=== PATIENT | female | born 1940 | race Caucasian/White ===

== ENCOUNTER 2016-06-21 09:12 | Outpatient (CLI) | payer MEDICARE, OTHER | END 2016-06-21 09:13 | disposition home or self-care (01) | DX: G47.33 Obstructive sleep apnea (adult) (pediatric) (principal) | CPT/HCPCS: 99214; G0463 ==

== ENCOUNTER 2016-08-03 11:17 | Outpatient (CLI) | payer MEDICARE, OTHER | END 2016-08-03 11:18 | disposition home or self-care (01) | DX: G47.33 Obstructive sleep apnea (adult) (pediatric) (principal) | CPT/HCPCS: 99214; G0463 ==

== ENCOUNTER 2016-10-31 10:48 | Outpatient (CLI) | payer MEDICARE, OTHER | END 2016-10-31 10:49 | disposition home or self-care (01) | DX: G47.33 Obstructive sleep apnea (adult) (pediatric) (principal) | CPT/HCPCS: 99214; G0463 ==

== ENCOUNTER 2017-06-05 11:15 | Outpatient (CLI) | payer MEDICARE, OTHER | END 2017-06-05 11:16 | disposition home or self-care (01) | LOC: SC 11:15 | PROVIDERS: ATTEND Nurse Practitioner Family | DX: G47.33 Obstructive sleep apnea (adult) (pediatric) (principal) | CPT/HCPCS: 99214; G0463; 99212 ==

== ENCOUNTER 2018-06-20 10:17 | Outpatient (CLI) | payer MEDICARE, OTHER | END 2018-06-20 10:18 | disposition home or self-care (01) | LOC: SC 10:17 | PROVIDERS: ATTEND Nurse Practitioner Family | DX: G47.33 Obstructive sleep apnea (adult) (pediatric) (principal) | CPT/HCPCS: 99214; G0463; 99212 ==

== ENCOUNTER 2020-06-10 18:32 | Outpatient (CLI) | payer MEDICARE, OTHER | END 2020-06-10 18:33 | disposition home or self-care (01) | LOC: COV 18:32 | PROVIDERS: ATTEND Ophthalmology | DX: Z01.812 Encounter for preprocedural laboratory examination (principal); Z20.828 Contact with and (suspected) exposure to other viral communicable diseases ==

== ENCOUNTER 2021-03-23 15:44 | Outpatient (CLI) | payer MEDICARE, OTHER ==
[2021-03-23 16:28] VITALS: BP 131/84
--- NOTE | 2021-03-23 16:28 | SLEEP CARE CONSULTATION ---
Information from patient questionnaire entered by Liam Arzate. I have reviewed and concur with the information entered by Liam Arzate. This document represents the service I personally performed and the decisions made by me, Frieda De Jesus ARNP. History of Present Illness Service Date and Time: 03/23/2021 1544 Previous diagnosis: Mild, Obstructive Sleep Apnea-Hypopnea Syndrome AHI: 10.5 Reason for follow up: annual (Last seen 06/2018) Equipment type: CPAP Equipment obtained from: [facility] (getting supplies as needed) Mask style: Nasal Backup mask available: Yes (old mask) Last cushion change: 2 weeks ago Year and Where: 2015 [facility] poly Type of Sleep Study: Polysomnography HPI additional information: REI CALHOUN was diagnosed to have mild, AHI 10.5, obstructive sleep apnea- hypopnea syndrome and returned today for CPAP therapy annual follow-up. CPAP Compliance Data - Data Reviewed with Patient Average duration of nightly device use: 6 h 37 min Compliance rate %: 98.3 Current pressure setting (cmH2O): 8 Humidity settin Heated hose settin Average residual AHI: 7.5 Average large leak: 37 sec Subjective Missed days of use due to: reports: mask issues Patient concerns: reports: air blowing in eyes, dry mouth, nose, throat (just recently), other (Headache, doesn't slow down, more pressure than headache). denies: aerophagia, mask discomfort, mask leak noise, condensation in mask/hose, nasal congestion, epistaxis Observed to snore while using device: No Current pressure setting perceived as: comfortable On therapy, patient: reports: sleeping better, awakening more refreshed, being more awake and alert during the day, more rested overall. denies: drowsiness while driving Initial [place] Sleepiness Scale score: 2 (in 2016) Current [place] Sleepiness Scale score: 2 Allergies and Home Medications Home medication list reviewed: Yes Allergy and home medication list: Metformin Micardis Synthroid Allopurinol Atorvastatin Areds COQ 10 D3 B complex Krill oil Aspirin Probiotic Review of Systems Review of systems same as previous: No (some dizziness, EKG not normal, monitoring her for heart issues; spinal nakia) Physical Exam Blood Pressure: 131/84 Cuff size: long Heart Rate: 81 O2 Saturation: 96 Height: 5 ft 3.5 in Weight: 215 lb Body Mass Index: 37.5 BMI Classification: Obese Impression and Plan 1. Obstructive Sleep Apnea-Hypopnea Syndrome, mild, with good treatment compliance and fair apnea control with elevated residual AHI. On CPAP therapy, the patient has better sleep quality and is more rested overall. The patients pressure will be changed to autoCPAP 9 cmH20 for elevation of residual AHI. Patient advised to contact me if pressure change is uncomfortable so that it can be adjusted. Goals for apnea control discussed. Patient has already registered their device for the recall. Patient denies any black particles seen in machine or hoses, any unusual odors coming from device. Patient has not experienced any physical symptoms such as upper airway irritation, headache, skin or eye irritation, asthma, nausea/vomiting, difficulty breathing or chest pain. Patient informed that they may use an inline CPAP filter that they can obtain online to reduce chance of any particles being inhaled or ingested. We discussed tho roughly the health risks of not using the CPAP versus continuing use with the filter in place. If patient is not able to sleep due to waking up choking, gasping for air or other respiratory distress that they may decide to continue using it until it is either replaced or repaired. Patient was encouraged to lose weight for their overall health and to reduce apneas. Patient voiced understanding and agreement with plan. Patient's apnea severity and rationale for treatment to reduce apnea, improve sleep quality and reduce cardiovascular and cerebrovascular events was reviewed. I also reviewed the benefit of consistent device use of CPAP for diabetes and hypertension. * Change auto CPAP pressure to 9 cmH2O * Notify me if snoring with mask or feeling that the pressure is too much or too little * Attempt to lose weight * Call this office if any problems using CPAP * Return for follow up in 1 year, or sooner if concerns arise Counseling Topics: Spare mask, Weight loss health impact Time Spent with Patient (minutes): 25
== END 2021-03-23 15:45 | disposition home or self-care (01) ==
LOC: SC 15:44
PROVIDERS: ATTEND Nurse Practitioner Family
DX: G47.33 Obstructive sleep apnea (adult) (pediatric) (principal); E66.9 Obesity, unspecified; Z68.37 Body mass index [BMI] 37.0-37.9, adult
CPT/HCPCS: 99213; G0463; 99212

== ENCOUNTER 2022-05-24 12:58 | Outpatient (CLI) | payer MEDICARE, OTHER ==
[2022-05-24 13:31] VITALS: BP 138/56
--- NOTE | 2022-05-24 13:31 | SLEEP CARE CONSULTATION ---
Information from patient questionnaire entered by Radha Georges. I have reviewed and concur with the information entered by Radha Georges. This document represents the service I personally performed and the decisions made by me, Frieda De Jesus ARNP. History of Present Illness Service Date and Time: 05/24/2022 1258 Previous diagnosis: Mild, Obstructive Sleep Apnea-Hypopnea Syndrome AHI: 10.5 Reason for follow up: annual Equipment type: CPAP (DREAMSTATION) [facility] Mask style: Nasal Mask brand: Respironics (Dreamwear) Backup mask available: Yes (old mask) Last cushion change: last Sunday Prior sleep studies: Yes Year and Where: 2015 [facility] poly Type of Sleep Study: Polysomnography HPI additional information: REI CALHOUN was diagnosed to have mild, AHI 10.5, obstructive sleep apnea- hypopnea syndrome and returned today for CPAP therapy annual follow-up. 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 denies: aerophagia, mask discomfort, condensation in mask/hose, nasal congestion, epistaxis Observed to snore while using device: No Current pressure setting perceived as: comfortable On therapy, patient: reports: sleeping better, awakening more refreshed, being more awake and alert during the day, more rested overall. denies: drowsiness while driving Initial [place] Sleepiness Scale score: 2 (in 2016) Current [place] Sleepiness Scale score: 2 (05/24/22) Allergies and Home Medications Drug allergies reviewed: Yes (penicilin, codeine) Home medication list reviewed: Yes (no changes) Review of Systems Review of systems same as previous: Yes (no changes) Physical Exam Vital signs obtained and entered by: GEOVANY GARZA Blood Pressure: 138/56 (LEFT ARM ) Heart Rate: 84 O2 Saturation: 98 Height: 5 ft 3.5 in Weight: 187 lb Body Mass Index: 32.5 BMI Classification: Obese Impression and Plan 1. Obstructive Sleep Apnea-Hypopnea Syndrome, mild, with good treatment compliance and good apnea control. On CPAP therapy, the patient has better sleep quality and is more rested overall. Her is on hospice for CHF and she has been having to deal with this reality. Her spirits are up but she does feel stressed about her husbands health. Patient has significant improvement of their sleep apnea and are satisfied with current CPAP therapy. Patient denies problems with oral dryness, nasal congestion, epistaxis, skin irritation or aerophagia. Patient's apnea severity and rationale for treatment to reduce apnea, improve sleep quality and reduce cardiovascular and cerebrovascular events was reviewed. I also reviewed the benefit of consistent device use of CPAP for hypertension and diabetes. 2. Obesity, unspecified. Currently patients BMI is 32.5. She has lost about 20 pounds this year. Obesity increases the risk of apnea, CPAP pressure requirements and overall health risks especially cardiovascular and diabetes. Thus patient is advised to continue to try to lose weight. * Continue CPAP pressure at 9 cmH2O * Update supplies * Notify me if snoring with mask or feeling that the pressure is too much or too little * Continue to try to lose weight * Call this office if any problems using CPAP * Return for follow up in 1 year, or sooner if concerns arise Counseling Topics: Spare mask, Weight loss health impact Visit Type: In Office Time Spent with Patient (minutes): 20 Provider Statement: I spent 100% of the Face to Face Visit with the patient with greater than 50% spent counseling the patient and coordination of care.
== END 2022-05-24 12:59 | disposition home or self-care (01) ==
LOC: SC 12:58
PROVIDERS: ATTEND Nurse Practitioner Family
DX: G47.33 Obstructive sleep apnea (adult) (pediatric) (principal); E66.9 Obesity, unspecified; Z68.32 Body mass index [BMI] 32.0-32.9, adult
CPT/HCPCS: 99213; G0463; 99212

== ENCOUNTER 2022-06-03 16:18 | Emergency (ER) | payer MEDICARE, OTHER ==
[2022-06-03 16:33] VITALS: BP 175/82
--- NOTE | 2022-06-03 16:41 | ED Physician Documentation ---
PD HPI HEAD INJURY - Stated complaint Stated Complaint: HEAD INJURY - Chief complaint Chief Complaint: Trauma Hd/Nk - History obtained from History obtained from: Patient - Additional information Additional information: 82-year-old woman who is not anticoagulated was loading wood into a wheelbarrow at around 330 this afternoon. She turned around and slipped and fell backwards the back of her head on the wheelbarrow. She has pain in the occiput but nowhere else. She felt woozy but did not lose consciousness. No other injuries. 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 - Present Medications Home Medications: Ambulatory Orders Medication Instructions Recorded Confirmed Atorvastatin [Lipitor] 20 mg PO QPM 06/03/22 06/03/22 Cholecalciferol [Vitamin D3] 25 mcg PO DAILY 06/03/22 06/03/22 Telmisartan 40 mg PO DAILY 06/03/22 06/03/22 Vitamin B Complex Vit C No.3 [B 1 each PO DAILY 06/03/22 06/03/22 Complex with Vitamin C] allopurinoL [Zyloprim] 100 mg PO DAILY 06/03/22 06/03/22 metFORMIN [Glucophage] 1,000 mg PO DAILY PM 06/03/22 06/03/22 metFORMIN [Glucophage] 500 mg PO DAILY 06/03/22 06/03/22 - Allergies Allergies/Adverse Reactions: Allergies Allergy/AdvReac Type Severity Reaction Status Date / Time codeine Allergy Hives Verified 06/03/22 16:34 Penicillins Allergy Hives Verified 06/03/22 16:34 PD ED PE NORMAL - Vitals Vital signs reviewed: Yes - General General: Alert and oriented X 3, No acute distress - HEENT HEENT: PERRL, EOMI, Other (There is a hematoma on the occiput that is not tender . No laceration.) - Neck Neck: Supple, no meningeal sign, No bony TTP, C-Spine cleared by NEXUS criteria - Neuro Neuro: Alert and oriented X 3, production superintendent hydro 2-12 intact, No motor deficit, No sensory deficit, Normal speech Eye Opening: Spontaneous Motor: Obeys Commands Verbal: Oriented GCS Score: 15 - Psych Psych: Normal mood, Normal affect Results - Vitals Vitals: Vital Signs - 24 hr 06/03/22 16:29 Temperature 36.2 C L Heart Rate 97 Respiratory 16 Rate Blood Pressure 175/82 H O2 Saturation 95 - Rads (name of study) CT of the head without contrast is negative. Radiology: Final report received, EMP read indepedently Departure - Departure Disposition: 01 Home, Self Care Clinical Impression: Scalp contusion Qualifiers: Encounter type: initial encounter Qualified Code(s): S00.03XA - Contusion of scalp, initial encounter Condition: Good Instructions: ED Head Injury Closed Discharge Date/Time: 06/03/22 17:25
--- NOTE | 2022-06-03 17:10 | CT Report ---
PROCEDURE: HEAD WO INDICATIONS: head inj TECHNIQUE: Noncontrast 4.5 mm thick angled axial sections acquired from the foramen magnum to the vertex. For r adiation dose reduction, the following was used: automated exposure control, adjustment of mA and/or kV according to patient size. COMPARISON: None. FINDINGS: Image quality: Excellent CSF spaces: Basal cisterns are patent. Lateral ventricles are symmetric. Volume: Mild overall volume loss. Brain: No intracranial hemorrhage. Angulo-white differentiation is grossly maintained. Craniofacial structures: Left occipital contusion. IMPRESSION: No acute intracranial abnormality. Left occipital scalp contusion. Reviewed by: Jono Abdi MD on 06/03/2022 4:08 PM [facility] Approved by: Jono Abdi MD on 06/03/2022 4:08 PM [facility] Station ID: [id number]
== END 2022-06-03 17:25 | disposition home or self-care (01) ==
LOC: ED 16:18
DX: S00.03XA Contusion of scalp, initial encounter (principal); W01.198A Fall on same level from slipping, tripping and stumbling with subsequent striking against other object, initial encounter
CPT/HCPCS: 99282; 99284

== ENCOUNTER 2023-05-24 12:46 | Outpatient (CLI) | payer MEDICARE, OTHER ==
--- NOTE | 2023-05-24 13:21 | Sleep Patient Instructions ---
Sleep Center Visit Summary - Patient Visit Information Reason for Visit: Annual Visit - Patient Instructions Additional Instructions: You will continue with CPAP therapy with pressure set at 9 cmH2O. A supply prescription will be updated with your DME. We encourage you to continue to try to lose weight. Please follow up with the sleep care office in 1 year. - Clinic Information Contact: [facility] [address] [place] [email or web address] T: [phone]
--- NOTE | 2023-05-24 13:26 | SLEEP CARE CONSULTATION ---
Information from patient questionnaire entered by Francheska De La Cruz. I have reviewed and concur with the information entered by Francheska De La Cruz. This document represents the service I personally performed and the decisions made by me, Frieda De Jesus ARNP. History of Present Illness Service Date and Time: 05/24/2023 1246 Previous diagnosis: Mild, Obstructive Sleep Apnea-Hypopnea Syndrome AHI: 10.5 Reason for follow up: annual (LAST SEEN 05/2022) Equipment type: CPAP (DREAMSTATION recertified, got in March) Equipment obtained from: [facility] [employer] [facility] [employer] (getting supplies as needed) Mask style: Nasal Backup mask available: Yes Last cushion change: 1 week Prior sleep studies: Yes Year and Where: 2015 [facility] Type of Sleep Study: Polysomnography HPI additional information: REI CALHOUN was diagnosed to have mild, AHI 10.5, obstructive sleep apnea- hypopnea syndrome and returned today for CPAP therapy annual follow-up. Sleep Study - Results Type of Sleep Study: Polysomnography Prior sleep studies: Yes Year and Where: 2015 [facility] poly CPAP Compliance Data - Data Reviewed with Patient Average duration of nightly device use: 6 HRS 39 MINS 8 SEC Compliance rate %: 22.7 (05/21/22-05/20/23; 65.6% in last 3 months) Current pressure setting (cmH2O): 9 Average residual AHI: 1.2 Compliance data discussion: Her card does not have data from old machine. She uses her machine every night. She is compliant. Subjective Missed days of use due to: reports: other (power outages) Patient concerns: reports: dry mouth, nose, throat (dry mouth and throat; just diagnosed with Sjogrens). denies: aerophagia, mask discomfort, air blowing in eyes, mask leak noise, condensation in mask/hose, nasal congestion, epistaxis Observed to snore while using device: No Current pressure setting perceived as: comfortable On therapy, patient: reports: sleeping better, awakening more refreshed, being more awake and alert during the day, more rested overall. denies: drowsiness while driving Initial [place] Sleepiness Scale score: 2 (in 2016) Current [place] Sleepiness Scale score: 2 Allergies and Home Medications Known drug allergies: Yes (as listed) Drug allergies reviewed: Yes Home medication list reviewed: Yes (Eliquis) Allergy and home medication list: Allergies codeine Allergy (Verified 05/23/23 16:27) Hives Penicillins Allergy (Verified 05/23/23 16:27) Hives Review of Systems Review of systems same as previous: No (A-fib; Sjogren's) Physical Exam Vital signs obtained and entered by: FRIEDA JONES Blood Pressure: 142/71 Cuff size: wrist (left) Heart Rate: 68 O2 Saturation: 99 Height: 5 ft 3.5 in Weight: 211 lb 9.6 oz Body Mass Index: 36.8 BMI Classification: Obese Impression and Plan 1. Obstructive Sleep Apnea-Hypopnea Syndrome, mild, with good treatment compliance and good apnea control. On CPAP therapy, the patient has better sleep quality and is more rested overall. Patient states she uses her machine every night and she has significant improvement of her sleep apnea. Her SD card does not have all of her data on it but in the last 3 months her compliance is at 65.6%. Patient denies problems with oral dryness, nasal congestion, epistaxis, skin irritation or aerophagia. Patient's apnea severity and rationale for treatment to reduce apnea, improve sleep quality and reduce cardiovascular and cerebrovascular events was reviewed. I also reviewed the benefit of consistent device use of CPAP for hypertension, atrial fibrillation and diabetes. 2. Obesity, unspecified. Currently patients BMI is 36.8. Obesity increases the risk of apnea, CPAP pressure requirements and overall health risks especially cardiovascular and diabetes. Thus patient is advised to lose weight. * Continue CPAP pressure at 9 cmH2O * Update supply prescription * Notify me if snoring with mask or feeling that the pressure is too much or too little * Attempt to lose weight * Call this office if any problems using CPAP * Return for follow up in 1 year, or sooner if concerns arise Counseling Topics: Spare mask, Weight loss health impact Prescriptions: Device supplies Follow up with Sleep Care in: 1 year Visit Type: In Office Time Spent with Patient (minutes): 25 Provider Statement: I spent 100% of the Face to Face Visit with the patient with greater than 50% spent counseling the patient and coordination of care.
[2023-05-24 13:42] VITALS: BP 142/71; O2SAT 99
== END 2023-05-24 12:47 | disposition home or self-care (01) ==
LOC: SC 12:46
PROVIDERS: ATTEND Nurse Practitioner Family
DX: G47.33 Obstructive sleep apnea (adult) (pediatric) (principal); E66.9 Obesity, unspecified; Z68.36 Body mass index [BMI] 36.0-36.9, adult
CPT/HCPCS: 99213; G0463; 99212